=== PATIENT | female | born 1980 | race Caucasian/White ===

== ENCOUNTER 2019-06-30 19:03 | Emergency (ER) | payer MEDICAID ==
[~2019-06-30] VITALS: Ht 167.6 cm; Wt 71.2 kg
[2019-06-30 19:31] VITALS: Ht 167.6 cm; Wt 71.2 kg
[2019-06-30 20:14] VITALS: BP 149/89
== END 2019-06-30 20:14 | disposition home or self-care (01) ==
LOC: ED 19:03
DX: S60.221A Contusion of right hand, initial encounter (principal); Z98.890 Other specified postprocedural states; Z87.19 Personal history of other diseases of the digestive system; X50.0XXA Overexertion from strenuous movement or load, initial encounter; Y93.89 Activity, other specified; Y92.812 Truck as the place of occurrence of the external cause; Y99.8 Other external cause status
CPT/HCPCS: J1885